=== PATIENT | male | born 1950 ===

== ENCOUNTER 2025-05-10 04:15 | Outpatient (CLI) | payer MEDICARE, SELFPAY ==
[2025-05-10 13:17] LABS: Abs Immature Grans 0.06 10^3/uL (0.0-0.06); HCT 34.8 % (40.0-50.0); HGB 11.1 g/dL (13.5-17.5); Immature Grans % 0.4 %; MCH 28.8 pg (27.0-33.0); MCHC 31.9 % (32.0-36.0); MCV 90 fL (80-95); MPV 8.4 fL (8.0-11.0); Platelet Count 169 10^3/uL (130-400); RBC 3.85 10^6/uL (4.36-5.78); RDW 14.9 % (11.8-14.1); RDW-SD 49.6 fL; WBC 14.37 10^3/uL (4.4-10.8)
[2025-05-10 13:32] LABS: Magnesium 1.6 mg/dL (1.6-2.6)
[2025-05-10 13:34] LABS: ALT 12 U/L (10-49); AST 13 U/L (<34); Albumin 4.3 g/dL (3.2-5.0); Alkaline Phosphatase 69 U/L (46-116); Anion Gap 4.7 mmol/L (3-11); BUN 13 mg/dL (9-23); Bilirubin, Total 0.70 mg/dL (0.2-1.2); CO2 38.5 mmol/L (20.0-31.0); Calcium 9.5 mg/dL (8.3-10.6); Chloride 93 mmol/L (98-107); Glucose 182 mg/dL (74-106); Potassium 4.0 mmol/L (3.5-5.1); Sodium 136 mmol/L (136-145); Total Protein 7.1 g/dL (5.7-8.2)
[2025-05-10 13:37] LABS: TSH 1.79 uIU/mL (0.55-4.78)
== END 2025-05-10 04:16 | disposition home or self-care (01) ==
LOC: LBO 04:15
PROVIDERS: Visit Provider Internal Medicine Medical Oncology
DX: C15.9 Malignant neoplasm of esophagus, unspecified (principal); Z79.899 Other long term (current) drug therapy
CPT/HCPCS: 36415; 80053; 83735; 84439; 84443; 85025